=== PATIENT | male | born 1965 | race Caucasian/White ===

== ENCOUNTER 2024-11-21 22:15 | Emergency (ER) | payer OTHER | END 2024-11-21 22:44 | disposition home or self-care (01) | LOC: VM.ED 22:15 | DX: S40.021A Contusion of right upper arm, initial encounter (principal); I25.2 Old myocardial infarction; I25.10 Atherosclerotic heart disease of native coronary artery without angina pectoris; Z95.5 Presence of coronary angioplasty implant and graft; Z79.82 Long term (current) use of aspirin; Z79.899 Other long term (current) drug therapy; X58.XXXA Exposure to other specified factors, initial encounter; Y93.89 Activity, other specified | CPT/HCPCS: 99283 ==